=== PATIENT | male | born 1965 | race Caucasian/White ===

== ENCOUNTER 2022-03-07 11:11 | Outpatient (CLI) | payer OTHER, SELFPAY ==
--- NOTE | 2022-03-07 11:33 | XR_ITS ---
WS: [id number] Exam: XR knee LT 3V* [id number] Date/Time of Exam: 03/07/2022 11:54 AM Reason For Exam: ARTHRITIS No fracture or dislocation. Joint compartments are well-maintained. No joint effusion. Venous varicos ities noted along the medial aspect of the knee. XR/XR knee LT 3V* [id number] IMPRESSION: 1. No fracture or other significant finding.
--- NOTE | 2022-03-07 11:33 | XR_ITS ---
WS: [id number] Exam: XR knee RT 3V* [id number] Date/Time of Exam: 03/07/2022 11:54 AM Reason For Exam: ARTHRITIS No fracture or dislocation identified. No joint effusion seen. The joint compartments are preserved. There appears to be a bone spur along the anterior margin of the tibial plateau. XR/XR knee RT 3V* [id number] IMPRESSION: 1. No fracture or joint effusion. 2. Bone spur along the anterior margin of the central tibial plateau.
== END 2022-03-07 11:12 | disposition home or self-care (01) ==
PROVIDERS: PCP Family Medicine; Visit Provider Chiropractor
DX: M13.861 Other specified arthritis, right knee; M13.862 Other specified arthritis, left knee
CPT/HCPCS: 73562

== ENCOUNTER 2022-06-27 14:15 | Outpatient (RCR) | payer OTHER, SELFPAY | END 2022-07-09 23:59 | disposition home or self-care (01) | LOC: SPT 14:15 | PROVIDERS: Visit Provider Family Medicine | DX: M25.569 Pain in unspecified knee (principal) | CPT/HCPCS: 97110; 97161 ==

== ENCOUNTER 2022-07-20 08:36 | Outpatient (RCR) | payer OTHER, SELFPAY | END 2022-08-08 23:59 | disposition home or self-care (01) | LOC: SPT 08:36 | PROVIDERS: Visit Provider Family Medicine | DX: M25.569 Pain in unspecified knee (principal) | CPT/HCPCS: 97110 ==

== ENCOUNTER 2022-08-09 06:00 | Outpatient (RCR) | payer OTHER, SELFPAY | END 2022-09-08 23:59 | disposition home or self-care (01) | LOC: SPT 06:00 | PROVIDERS: Visit Provider Family Medicine | DX: M25.569 Pain in unspecified knee (principal) | CPT/HCPCS: 97110 ==

== ENCOUNTER 2022-09-18 20:00 | Outpatient (CLI) | payer OTHER, SELFPAY | END 2022-09-18 20:01 | disposition home or self-care (01) | LOC: SLEEP 09-19 06:14 | PROVIDERS: Visit Provider Family Medicine | DX: G47.10 Hypersomnia, unspecified (principal) | CPT/HCPCS: 95810 ==

== ENCOUNTER 2023-07-03 08:29 | Outpatient (CLI) | payer OTHER, SELFPAY ==
--- NOTE | 2023-07-03 08:40 | MR_ITS ---
WS: [id number] MRI LUMBAR SPINE NONCONTRAST TECHNIQUE: Sagittal T1, T2 and STIR imaging. Axial T1 and T2 imaging. CLINICAL INFORMATION: LUMBAR RADICULOPATHY COMPARISON: None. FINDINGS: Mild lumbar curve. No acute compression. No high-grade central canal stenosis. L1-L2: Mild annular bulging. Narrowing of the LEFT subarticular recess. Mild facet arthropathy. Mild LEFT greater than RIGHT foraminal narrowing. L2-L3: Mild annular bulging. Impingement RIGHT subarticular recess and traversing RIGHT L3 nerve root . Mild facet arthropathy. Mild RIGHT foraminal narrowing. L3-L4: Mild disc bulging with mild facet arthropathy. Mild bilateral foraminal narrowing with small f oraminal protrusions. L4-L5: Mild disc bulge with osteophytic ridging. Moderate facet arthropathy. Spinal canal is patent. Moderate RIGHT foraminal narrowing impinges the exiting RIGHT L4 nerve root. L5-S1: Mild disc bulging with moderate facet arthropathy. Mild LEFT greater than RIGHT foraminal narr owing. Spinal canal is patent. Visualized pelvic bony structures: Normal. Paravertebral soft tissues: Normal. Small disc protrusions in the cervical spine merchandise flow associate imaging at C3-C4 and C5-C6 with slight indentation of the cervical cord and mild central canal stenosis. MR/MR lumbar spine wo con* [id number] IMPRESSION: 1. Mild lumbar curve. No acute compression. 2. Moderate RIGHT L4-5 foraminal narrowing impinges the exiting RIGHT L4 nerve root. Recommend correlation for RIGHT L4 nerve root symptoms. 3. Small LEFT proximal foraminal protrusion L1-2 with narrowing of the LEFT ness barticular recess and mild LEFT foraminal narrowing. 4. Small RIGHT foraminal protrusion L2-3 impinges the RIGHT subarticular reces s with contact of the exiting RIGHT L2 nerve root. 5. Mild bilateral L3-4 foraminal narrowing with small foraminal protrusions. 6. Moderate facet arthropathy worse at L4-L5 and L5-S1.
== END 2023-07-03 08:30 | disposition home or self-care (01) ==
LOC: RAD 08:29
PROVIDERS: Visit Provider Family Medicine
DX: M16.0 Bilateral primary osteoarthritis of hip (principal)
CPT/HCPCS: 72148; 99203

== ENCOUNTER → 2023-09-01 07:15 | Outpatient (BNVA) | payer OTHER, SELFPAY | PROVIDERS: PCP Family Medicine; Visit Provider Student in an Organized Health Care Education/Training Program | DX: M16.0 Bilateral primary osteoarthritis of hip (principal) | CPT/HCPCS: 73522 ==

== ENCOUNTER → 2023-10-02 09:48 | Outpatient (BNVA) | payer OTHER, SELFPAY | PROVIDERS: PCP Family Medicine; Visit Provider Student in an Organized Health Care Education/Training Program | DX: M16.12 Unilateral primary osteoarthritis, left hip | CPT/HCPCS: 20610; 77002; J3301 ==

== ENCOUNTER → 2024-01-15 08:00 | Outpatient (BNVA) | payer OTHER, SELFPAY | PROVIDERS: PCP Family Medicine; Visit Provider Physician Assistant | DX: M16.0 Bilateral primary osteoarthritis of hip (principal) | CPT/HCPCS: 99214 ==

== ENCOUNTER 2024-02-19 08:49 | Outpatient (CLI) | payer OTHER, SELFPAY ==
--- NOTE | 2024-02-19 09:15 | CT_ITS ---
WS: [id number] CT LEFT HIP, noncontrast HISTORY: M16.12 - Unilateral primary osteoarthritis, left hip TECHNIQUE: Protocol for [facility] total hip replacement has been obtained. This includes axial imaging thr ough the LEFT hip AND LEFT KNEE. DLP: 655.12 mGy COMPARISON: None available. Degenerative disc disease in the lower lumbar spine. Moderate bilateral hip joint arthritis with join t space narrowing, osteophytic ridging and acetabular ridging. No fractures. LEFT knee: Mild patellofemoral joint space narrowing. No fracture. CT/CT hip LT [facility] [id number] IMPRESSION: CT imaging provided for [facility] robotic total LEFT HIP replacement.
[2024-02-19 10:00] LABS: Basophils % 0.4 %; Eosinophils # 0.1 10^3/uL (0.0-0.8); Eosinophils % 1.3 %; Hematocrit 40.2 % (37-53); Lymphocytes # 1.6 10^3/uL (0.8-4.8); Lymphocytes % 34.8 %; Mean Corpuscular HGB Conc 33.1 g/dL (30-55); Mean Corpuscular Volume 87.8 fl (82-101); Mean Platelet Volume 7.9 fL (7.4-10.4); Monocytes # 0.4 10^3/uL (0.2-0.9); Monocytes % 7.8 %; Neutrophils # 2.53 10^3/uL (1.8-7.7); Nucleated Red Blood Cells % 0 %; Platelet Count 280 10^3/cmm (157-399); Red Blood Count 4.58 10^6/uL (3.85-5.65); Red Cell Distribution Width 12.5 % (12.1-15.1)
[2024-02-19 10:09] LABS: Bilirubin Urine Negative (Negative); Blood Urine Negative (Negative); Glucose Urine UA Negative (Normal); Ketones Urine Negative (Negative); Leukocyte Esterase Urine Negative (Negative); Nitrate Urine Negative (Negative); Protein Urine Negative (Negative); Urine Appearance Clear (CLEAR); Urine Color Yellow (Yellow); Urobilinogen Urine 0.2 mg/dL (Negative)
[2024-02-19 10:16] LABS: Add Urine Microscopic? YES; Bacteria Urine None Seen /hpf; Hyaline Casts Urine 0-4 /lpf; RBC Urine 0-2 /hpf (0-2); Squamous Epithelial Cell Urine 0-5 /hpf (0-5); WBC Urine 0-5 /hpf (0-5)
[2024-02-19 10:20] LABS: Alanine Aminotransferase 14 U/L (0-41); Albumin Level 4.3 g/dL (3.5-5.2); Alkaline Phosphatase 70 U/L (40-130); Anion Gap 15.5 (5-19); Aspartate Amino Transferase 18 U/L (0-40); Blood Urea Nitrogen 13 mg/dL (8-23); Calcium 9.2 mg/dL (8.5-10.5); Carbon Dioxide 25 mmol/L (22-29); Chloride 104 mmol/L (98-107); Globulin 2.4 g/dL (1.3-4.6); Glomerular Filtration Rate 61.8 mL/min (90-130); Glucose 112 mg/dL (65-115); Osmolality Calculated 291 mOsm/kg (285-295); Potassium 4.5 mmol/L (3.5-5.1); Sodium 140 mmol/L (136-145); Total Bilirubin 0.4 mg/dL (0.15-1.2); Total Protein 6.7 g/dL (6.6-8.7)
== END 2024-02-19 08:50 | disposition home or self-care (01) ==
PROVIDERS: PCP Family Medicine; Visit Provider Student in an Organized Health Care Education/Training Program
DX: Z01.818 Encounter for other preprocedural examination (principal); M16.12 Unilateral primary osteoarthritis, left hip
CPT/HCPCS: 36415; 73700; 80053; 81001; 85025

== ENCOUNTER 2024-03-07 14:31 | Observation (INO) | payer OTHER, SELFPAY ==
[2024-03-07] VITALS (24 sets, daily range): BP systolic 112–165; BP diastolic 68–98; PULSE 70–107; RESP 14–18; TEMP 36.2–37.1; O2SAT 94–98; BMI 27.1
[2024-03-07] MEDS: sodium chloride 0.9% 1,000 ML 30 ML IV (06:22)
[2024-03-07] MEDS: acetaminophen 1,000 MG/100 ML PIGGYBACK 400 MG IV ×2 (06:22→16:45)
[2024-03-07] MEDS: ketorolac 30 mg/mL INJ IVP (06:23)
[2024-03-07 06:27] LABS: Basophils % 0.3 %; Eosinophils # 0.1 10^3/uL (0.0-0.8); Eosinophils % 1.3 %; Hematocrit 40.8 % (37-53); Lymphocytes # 2.9 10^3/uL (0.8-4.8); Lymphocytes % 45.9 %; Mean Corpuscular HGB Conc 33.6 g/dL (30-55); Mean Corpuscular Volume 86.4 fl (82-101); Monocytes # 0.5 10^3/uL (0.2-0.9); Monocytes % 7.1 %; Neutrophils # 2.85 10^3/uL (1.8-7.7); Neutrophils % 45.1 %; Nucleated Red Blood Cells % 0 %; Platelet Count 312 10^3/cmm (157-399); Red Blood Count 4.72 10^6/uL (3.85-5.65); Red Cell Distribution Width 13.1 % (12.1-15.1); White Blood Count 6.32 10^3/uL (3.29-11.43)
[2024-03-07 06:46] LABS: Blood Urea Nitrogen 17 mg/dL (8-23); Calcium 9.2 mg/dL (8.5-10.5); Carbon Dioxide 22 mmol/L (22-29); Chloride 102 mmol/L (98-107); Glomerular Filtration Rate 61.8 mL/min (90-130); Glucose 106 mg/dL (65-115); Osmolality Calculated 288 mOsm/kg (285-295); Sodium 138 mmol/L (136-145)
[2024-03-07 06:52] LABS: Anion Gap 18.1 (5-19); Potassium 4.1 mmol/L (3.5-5.1)
--- NOTE | 2024-03-07 06:58 | P.HP_ITS ---
Same Day Surgery H&P Indication for Procedure/HPI DATE OF PROCEDURE: March 07, 2024 CHIEF COMPLAINT/INDICATIONFOR SURGICAL PROCEDURE: Left hip arthritis PREOP DIAGNOSIS: Left hip arthritis PLANNED PROCEDURE: Operation Date: 03/07/24 07:00 Proposed Procedures p Ángel Robot Anterior Hip Arthroplasty(Left) - Ion Whitlock DO Medications/Allergies* Home Medications Medication Instructions Recorded Confirmed Type omeprazole 20 mg capsule,delayed 20 mg PO BID 07/03/23 03/03/24 History release rosuvastatin 10 mg tablet 10 mg PO DAILY 07/03/23 03/03/24 History Allergies/Adverse Reactions Allergy/AdvReac Type Severity Reaction Status Date / Time No Known Allergies Allergy Verified 03/07/24 06:06 Current Medications: Generic Name Dose Route Start Last Admin Trade Name Freq PRN Reason Stop Dose Admin Sodium Chloride 1,000 mls @ 30 mls/hr 03/07/24 06:15 03/07/24 06:22 Sodium Chloride 0.9% IV 03/08/24 06:14 30 mls/hr .Q24H ANGELIA Administration Pertinent History/Comorbid Conditions* Social History Smoking and tobacco/nicotine status: never used tobacco/nicotine Pertinent Exam Findings alert, oriented x 3, operative site marked and procedure specific exam findings Please refer to detailed orthopedic examination on 01/15/2024 listed below: Right hip-palpable groin tenderness, limited range of motion. Pain with range of motion. Patient can perform straight leg raise with dorsiflexion and plantar flexion of foot. Left hip-palpable groin tenderness, limited range of motion with abrupt endpoint with external rotation. Pain with range of motion. Patient can perform straight leg raise with dorsiflexion and plantarflexion of foot. Recommendations Surgery/Procedure today Other Plans: Plan to proceed to the OR today for left total hip arthroplasty with Ángel robotic assisted plan to be through an anterior approach. As he has good body habitus and no significant pannus. We talked about his treatment options once again in detail he understands the ins and outs procedure the risk benefits Cage alternatives surgery and through shared decision make elects proceed with surgical invention. All questions answered at this time. He is cleared the preoperative clearance process no change in overall health since the previous visit. All questions answered. Will proceed to the OR today. Coding Level of Care Code Acute Code for [facility] Thiago
[2024-03-07] MEDS: ceFAZolin 2,000 MG in sodium chloride 0.9% (plus) 50 ML 100 MG IV ×3 (07:14→22:28)
--- NOTE | 2024-03-07 07:14 | P.ANESASSM_ITS ---
Pre-Anesthetic Assessment Height/Weight: Height 1.78 m Weight 85.729 kg Temp Pulse Resp BP Pulse Ox O2 Del Method 98.7 F 91 18 149/98 98 Room Air 03/07/24 06:11 03/07/24 06:11 03/07/24 06:11 03/07/24 06:11 03/07/24 06:11 03/07/24 06:12 Preop Diagnosis: Left hip arthritis Operation Date: 03/07/24 07:00 Proposed Procedures p Ángel Robot Anterior Hip Arthroplasty(Left) - Ion Whitlock DO Familial anesthetic complications: None Was Beta Jose taken within 24 hours: N/A Was Clonidine taken within 24 hours: N/A Last intake: Intake Last Liquid Date 03/06/24 Last Liquid Time 23:00 Last Solid Date 03/06/24 Last Solid Time 19:00 Social No alcohol and No tobacco Exam alert, oriented x 3, clear to auscultation bilaterally and regular rate & rhythm Airway Mallampati: Class IV Dentition: other (bridges) Comments: Comments: full hubbard Metabolic Hyperlipidemia Anesthetic Plan ASA status: 2 Anesthesia: General Risk of > 500 ml blood loss (7ml/kg in children): Yes, adequate IV access and fluids planned Other Pertinent Information Recent acute shingles outbreak Medications/Allergies Home Medications Medication Instructions Recorded Confirmed Last Taken Type omeprazole 20 mg capsule,delayed 20 mg PO BID 07/03/23 03/03/24 03/06/24 History release rosuvastatin 10 mg tablet 10 mg PO DAILY 07/03/23 03/03/24 03/05/24 History Allergies Allergy/AdvReac Type Severity Reaction Status Date / Time No Known Allergies Allergy Verified 03/07/24 06:06 Current Medications Generic Name Dose Route Start Last Admin Trade Name Freq PRN Reason Stop Dose Admin Sodium Chloride 1,000 mls @ 30 mls/hr 03/07/24 06:15 03/07/24 06:22 Sodium Chloride 0.9% IV 03/08/24 06:14 30 mls/hr .Q24H ANGELIA Administration PFSH Anesthesia Social History Smoking and tobacco/nicotine status: never used tobacco/nicotine Data Anesthesia 03/07/24 06:05 03/07/24 06:05 Short CBC 03/07/24 Range/Units 06:05 WBC 6.32 (3.29-11.43) 10^3/uL Hgb 13.70 (11.27-16.99) g/dL Hct 40.8 (37-53) % MCV 86.4 (82-101) fl Plt Count 312 (157-399) 10^3/cmm Neut % (Auto) 45.1 % Neut # (Auto) 2.85 (1.8-7.7) 10^3/uL BMP 03/07/24 06:05 Sodium 138 Potassium 4.1 Chloride 102 Carbon Dioxide 22 BUN 17 Creatinine 1.2 Glucose 106 Calcium 9.2 Cardiac Studies: 2 No Data to Display
[2024-03-07] MEDS: tranexamic acid 1,000 mg/10mL SDV 1000 MG IV (07:15)
[2024-03-07] MEDS: lidocaine-epi 1% 20 mL INJ INJECTION ×2 (08:17→10:27)
[2024-03-07] MEDS: VANCOMYCIN ADD-Vantage 1,000 MG VIAL 1000 MG XX (08:18)
--- NOTE | 2024-03-07 10:23 | XR_ITS ---
WS: [id number] Exam: XR hip LT 1V wo/w pel [id number] Date/Time of Exam: 03/07/2024 10:23 AM Reason For Exam: POST OP ANTERIOR LEFT HIP ARTHROPLASTY Comparison 09/01/2023. Single AP C-arm image of the LEFT hip shows a total joint replacement in satisfactory position. Posto perative changes in the adjacent soft tissues.
--- NOTE | 2024-03-07 10:40 | W.PM.BPON ---
Date of Procedure: [March 07, 2024] Surgeon: [Dr. Kamlesh DO] Medical Grade Shoemaker(s): [Woodrow jimenez PA-C] Procedure(s) performed: [Left total hip arthroplasty with Ángel robotic assist (anterior approach)] Findings of the procedure(s): [Left hip degenerative joint disease. Procedure went well and as planned.] Estimated blood loss: [250 mL] Specimen(s) removed: [Femoral head] Post-operative diagnosis: [Left hip degenerative joint disease]
--- NOTE | 2024-03-07 10:43 | PM.PACU ---
PACU note Narrative: Patient is a 58-year-old male who just underwent a left hip total arthroplasty. Pt transferred to PACU in stable condition. Dressing is dry. pt is awake and alert. pt can wiggle toes and plantarflex and dorsiflex foot. pt able to perform straight leg raise, Femoral nerve intact. Distal pulses are palpable toes are warm and well-perfused. Cap refill is normal and under 2 seconds. Sensation to foot is intact. Pain is controlled. Exam: awake Disposition: admitted
--- NOTE | 2024-03-07 10:50 | XR_ITS ---
WS: [id number] Exam: XR hip LT 2-3V wo/w pel* [id number] Date/Time of Exam: 03/07/2024 10:50 AM Reason For Exam: post op TIFFANIE left LEFT total hip arthroplasty in place in satisfactory position. Postoperative changes in the adjacent soft tissues. XR/XR hip LT 2-3V wo/w pel* [id number] IMPRESSION: 1. LEFT total hip arthroplasty in excellent position.
--- NOTE | 2024-03-07 11:07 | P.OP_ITS ---
Operative Report Date of procedure: March 07, 2024 Surgeon: Ion Whitlock DO Reinforcing Steel Machine Operator: Woodrow Whitlock PA-C: PA was necessary for assistance in this case with leg and hip positioning retraction and protection of neurovascular structures as well as assistance in implantation wound closure and dressing application. Procedure: Preoperative diagnosis Left hip degenerative joint disease post-op diagnosis: Same Procedure done: Left total?hip?arthroplasty?Ángel robotic assisted?anterior?approach Implants: Steve Trident acetabular shell size 54 mm Davenport insignia high offset size 5? femur stem Trident 0 degree polyethylene 36 degree inner diameter 36 mm femoral head ceramic +2.5 mm Surgeon: Ion Whitlock DO Anesthesia: General Estimated blood loss: 250 mL IV fluids: 1000 mL Complications: None Findings: See operative report narrative Condition: stable Disposition: floor Brief History: Patient is a 58-year-old male presented to my outpatient office setting findings consistent with ehvi-ij-mzbo arthritis advanced degenerative joint disease of the left?hip.? We talked about treatment options as far as nonoperative and operative intervention. Pt has failed conservative treatment.? we talked about treatment options at this point time pt understands the risk benefits complication alternatives surgical nonsurgical treatment options.? Patient und erstands the risk of surgery and agrees to proceed.? Patient has underwent a preoperative evaluation. Pt cleared for surical intervention. Pt understood and was agreeable to proceed with a left total?hip?arthroplasty consent was reviewed and signed with patient.?? All questions answered.? Patient will be admitted postoperatively. Procedure: Patient was seen evaluated in the preoperative holding area.? Consent was reviewed and signed with patient.? Correct operative extremity was then marked. ? All questions were answered at this time.? Once cleared by anesthesia used to brought back to the operative suite he then underwent anesthesia per the anesthesia department of a spinal anesthetic. The patient was administered tranexamic acid and preop antibiotics, and placed in the supine position. All bony prominences were properly padded, securely fixed to the table, and administered?general?anesthetic. The patient was subsequently transferred from the hospital bed to the [place] table. Bilateral lower extremities were placed in the traction boots. The pelvis was well approximated against the perineal post.? Final timeout performed.? Patient received appropriate preoperative antibiotics. Both?hips were then prepped and draped in a normal orthopedic fashion.? Started with a small incision 2 fingerbreadths above the ASIS on the right iliac wing to place? pelvic arrays.? Small incision was made directly down to bone.? 3 pelvic pins were placed with excellent fixation.? The robotic array was secured to the nonoperative iliac wing using sterile technique. The extremity was then definitively draped in standard, sterile fashion.? The array was found to be visible by the robot. ?A standard??anterior?supine approach was performed to the?operative left?hip?joint. The skin was incised down to the tensor fascia shoaib muscle and fascia. Fascia was split longitudinally in line with its fibers. The tensor fascia shoaib muscle was retracted laterally. The appropriate retractors were placed superiorly. Lateral circumflex vessels were identified and appropriately ligated. The?hip?capsule was then identified.? Appropriate retractors were placed superiorly and inferiorly along the capsule directly onto bone.? That was split longitudinally up to the acetabular rim in line with the femoral neck. The femoral capsule was found to be significantly hypertrophic, thickened, and significantly fibrotic. The capsule was then elevated both superiorly and inferiorly down to the lesser trochanter as well as up towards the greater trochanter.? Tag stitches were applied with 0 Vicryl into the capsule.? Femoral check point was?then inserted and confirmed on the lateral trochanter proximal femur.? .? A distal marker?of a sterile EKG lead was placed into the distal femur for measurement of leg lengths.? Preoperative leg lengths were registered and confirmed at this point. Next the appropriate-sized neck cut was then performed after being measured with robotic assistance. Femoral head was removed atraumatically this was found to have significant degenerative changes and deformity with significant osteophyte formation.? Femoral head was found to be severely degenerated and flattening with, eburnated bone. Acetabulum was also inspected and was found to have peripheral osteophytes as well as no evidence of cartilage consistent with rkwf-nk-xebb arthritis.? Appropriate retractors were then placed in the?anterior?and posterior wall.? The remaining labrum was then excised from the periphery of the acetabular rim. Pulvinar was excised.? At this point registration for the Ángel was performed on the acetabular side and confirmed. Once confirmed, any osteophytes able to be were removed. We planned 40 degrees of lateral opening and 20 degrees of anteversion. At this point, we reamed and medialized to the inner wall of the acetabulum with a size?54?reamer for line to line fit.?The acetabulum was found to have good bleeding bone throughout.?? Reamer removed excellent bleeding bone circumferentially with sufficient?anterior?and posterior wall. ?The definitive acetabular cup 54 mm was inserted and impacted under?Ángel guidance with the appropriate amount of anteversion and lateral opening. Patient had excellent bone quality and bleeding bone subsequently to increase bony ingrowth on the superior aspect of the socket this was subsequently impacted in this position and had excellent fixation was confirmed to being down with the Ángel robotic assisted patient did have a deeper cotyloid fossa that was not completely reamed flush with as pt had a thinner medial wall from the preop CT scan. Given the excellent fixation no need for acetabular screws. A this had excellent fixation final x-rays were taken of the acetabular work and showed a seated and well fixed acetabular cup. ?Next a 36-mm X3 neutral liner was impacted into the?acetabular shell and secured.?Hip?was then irrigated with copious amounts of irrigation. At this point, the remaining femoral releases were then performed allowing the adequate mobilization of the?right?femur.? Traction was confirmed to being off to the right lower extremity and the femur was then externally rotated, extended, and adducted giving adequate exposure of the proximal femur in the surgical wound. Box cut was then used to enter the intramedullary canal of the?femur. Canal finder was placed down the canal of the?operative femur. Appropriate-sized broaches from a size 0 up to a size 5 were impacted down the operative femoral canal with the appropriate amount of anteversion.? A multiple trials were at tempted and it was found that?+2.5mm neck was found to be most appropriate for a soft tissue tensioning offset, stability and the leg lengths that was confirmed with Ángel. ?Stability was then assessed and excellent stability with patient external rotation of greater than 90 degrees and traction with no evidence of?hip?instability.? Appropriate tension noted of the soft tissues. At this point, the?hip?was relocated.?Ángel guidance was again used to confirm appropriate leg lengths.? I utilized C arm to evaluate for leg lengths as well I did slightly at the lengthen comparative to the contralateral extremity but this was the appropriate size for patient's stability and excellent soft tissue tensioning as well as this was mapped with her preoperative planning given she had been significantly shortened given pt arthritis.? Operative?hip?was then re- dislocated using a bone hook. All trials were then removed from the?operative femur. Adequate exposure was then once again obtained. The trials were removed. The definitive Davenport insignia high offset stem size 5 was impacted down the?femoral canal with the appropriate amount of anteversion. The appropriate sized head 36 mm ceramic +2.5 mm was impacted onto the trunnion, and the?operative?hip?was then relocated with traction and internal rotation. Final measurements were obtained on Ángel confirming leg lengths and offset.? Once again?hip?stability was assessed and found to have excellent stability and appropriate soft tissue tensioning.??Hip?was irrigated with copious amounts of irrigation.? Vancomycin powder was placed within the wound bed for added infection prophylaxis.? The superior and inferior leaflets of the capsule were then closed with Ethibond suture.? Vicryl tag stitches were removed.? The superficial layer of the tensor fascia shoaib fascia was closed using 0 stratafix suture in a running fashion.? Subcutaneous tissues were closed with running 2 -0 and 3-0 Stratafix, .?Surgical Prineo glue and steri strips were?applied and covered with a tahira incisional VAC dressing dressing to the operative side.?The incision on the non-operative side for the robotic array was irrigated and closed with layered fashion of 0 Vicryl, 2-0 Vicryl and running Monocryl suture and surgical glue and covered with Silverlon. ?The patient was subsequently awoken per Anesthesia and transferred to PACU in satisfactory condition. ?Leg le ngths and rotational profile were found to be appropriate. ? DISPOSITION: The patient will be admitted to the hospital for initiation of DVT prophylaxis, physical therapy, pain control. The patient is to weight bear as tolerated.?Anterior?hip?precautions, postoperative antibiotics,?postoperative TXA and Eliquis?for DVT prophylaxis.? Patient will receive appropriate discharge instructions as well as pain medication postoperatively and will follow up in my office in 2 weeks.? Patient with work with PT/OT.? Internal medicine will be consulted for medical management
[2024-03-07] MEDS: oxyCODONE 5 mg IR Tab/Cap PO ×2 (13:56→22:37)
[2024-03-07] MEDS: chlorhexidine gluconate 0.12% Btl 473 mL 30 ML MUCOUS MEM ×3 (15:07→21:47)
--- NOTE | 2024-03-07 15:40 | ANE.PACU2 ---
Inpatient post-anesthesia follow up: Airway intact: Yes Vital signs: Temperature 98.3 F Pulse Rate 80 Respiratory Rate 17 Blood Pressure 119/82 Pulse Oximetry 96 Oxygen Delivery Me thod Room Air Oxygen Flow Rate Fraction of Inspir ed Oxygen Hydration adequate: Yes Nausea and vomiting: No Pain level: 1 Mental status: Baseline
--- NOTE | 2024-03-07 15:48 | P.CONIM_ITS ---
Providers/Reason For Consult 2 Consulting Physician/Specialty*: Hospitalist Reason for Consult*: Medical management Attending Physician: Ion Whitlock DO Primary Care Provider: Rochelle Mojica MD History of Present Illness History of Present Illness Pleasant 58-year-old gentleman with history of hip osteoarthritis, HLD, GERD, inguinal hernia, has had a sleep study previously which showed no sleep apnea, underwent uneventful left hip TIFFANIE, EBL 250 mL, doing well postprocedure, he is awake and alert, in good spirits, denies any issues or discomfort. Review of Systems 2 Const: Denies: fever(s), chills, body aches or malaise ENMT: Denies: throat pain Card: Denies: chest pain, edema, pre-syncope or dyspnea on exertion Resp: Denies: dyspnea, productive cough, change in phlegm color or hemoptysis GI: Denies: abdominal pain, nausea, vomiting, diarrhea, constipation, hematochezia or melena : Denies: flank pain, difficulty urinating, urinary frequency or hematuria Musc: Denies: back pain, joint swelling or joint redness Skin/Breast: Denies: rash or new lesions Neuro: Denies: headache(s) or dizziness Medications/Allergies Home Medications Medication Instructions Recorded Confirmed Last Taken Type omeprazole 20 mg capsule,delayed 20 mg PO BID 07/03/23 03/03/24 03/06/24 History release rosuvastatin 10 mg tablet 10 mg PO DAILY 07/03/23 03/03/24 03/05/24 History Allergies Allergy/AdvReac Type Severity Reaction Status Date / Time No Known Allergies Allergy Verified 03/07/24 06:06 Current Medications Generic Name Dose Route Start Last Admin Trade Name Freq PRN Reason Stop Dose Admin Chlorhexidine Gluconate 30 ml 03/07/24 14:35 03/07/24 15:07 Chlorhexidine Gluconate 0.12% Btl 473 Ml MUCOUS MEM 30 ml QID ANGELIA Administration Cefazolin Sodium 2,000 mg/ 50 mls @ 100 mls/hr 03/07/24 15:00 03/07/24 15:10 Sodium Chloride IV 03/08/24 07:29 100 mls/hr Q8H ANGELIA Administration Protocol Oxycodone HCl 5 mg 03/07/24 13:48 03/07/24 13:56 Oxycodone 5 Mg Ir Tab/Cap PO 5 mg Q4H PRN Administration MODERATE PAIN PFSH Acute 2 PFSH: Medical History Hernia HLD (hyperlipidemia) GERD (gastroesophageal reflux disease) Social History Smoking and tobacco/nicotine status: never used tobacco/nicotine Vitals/I&O/Wt Last Vital Signs Temp 98.3 F 03/07/24 14:35 Pulse 80 03/07/24 14:35 Resp 17 03/07/24 14:35 BP 119/82 03/07/24 14:35 Pulse Ox 96 03/07/24 14:35 O2 Del Method Room Air 03/07/24 14:35 03/07/24 03/07/24 03/07/24 06:59 14:59 22:59 Intake Total 100 / 100 150 / 150 Output Total 500 / 500 Balance 100 / 100 -350 / -350 Weight last 48 hrs Weight 85.729 kg Physical Exam 2 Narrative: He is alert and lucid, pleasant, conversant, joking around in good spirits. Accompanied by his . Const: COMMON NORMALS: patient oriented x3 and alert GENERAL APPEARANCE: c ooperative ORIENTATION/CONSCIOUSNESS: Yes awake HENMT: COMMON NORMALS: oropharynx normal Neck/C-Spine: COMMON NORMALS: no JVD Resp: COMMON NORMALS: normal respiratory effort and clear to auscultation bilaterally AUSCULTATION: clear to auscultation bilaterally Cardio: COMMON NORMALS: no JVD, regular rhythm, S1 normal heart sound present, S2 normal heart sound present and No murmurs present (Cardio) RHYTHM: regular rhythm HEART SOUNDS: S1 normal heart sound present and S2 normal heart sound present GI: COMMON NORMALS: Normal to inspection, nondistended, normoactive bowel sounds present, Soft to palpation and non-tender PALPATION: Yes Soft to palpation Extremity: COMMON NORMALS: no joint enlargement and no pedal edema N ARRATIVE EXTREMITY EXAM: L hip TIFFANIE, LLE warm, perfused, without edema or cyanosis. Neuro: COMMON NORMALS: patient oriented x3 and moves all extremities S ENSORIUM/ORIENTATION: Yes alert Skin: COMMON NORMALS: no rashes or lesions noted GENERAL SKIN EXAM: no rashes or lesions noted Urinary Catheter Management: Chatman: Cath Placed During This Visit: yes Urinary Catheter Date of Insertion: 03/07/24 Urinary Catheter Time of Insertion: 07:30 Data 03/07/24 06:05 03/07/24 06:05 A&P Assessment and plan (1) Status post total hip replacement, left: Status post total left hip replacement, uneventful procedure, EBL 250 mL. As per discussion with orthopedic surgery, he is doing well, pending reassessment tomorrow by orthopedic surgery who have planned with him to return home with initiation of anticoagulation tomorrow for VTE prophylaxis. Reviewed vitals, CBC, BMP, surgery note. Discussed with surgeon. Pending PT assessment. Incentive spirometer is requested. Chatman catheter for now pending removal. With history of GERD would avoid NSAIDs. Acetaminophen as needed for mild pain added, oxycodone as needed for moderate pain. Hydromorphone as needed for severe breakthrough pain. Stop tramadol. He is awake and alert, hungry, was to eat. Discontinue IV fluid. Resume normal diet. He otherwise appears to be doing very well. Will sign off, but do not hesitate to call in case of any questions or deterioration. Plan GERD, resume PPI. Avoid NSAIDs. Discussed with him and his . Stop tramadol. HLD: Resume rosuvastatin. Inguinal hernia: Has not been bothering him at current time. Follow-up with PCP. Does not have sleep apnea. Follow-up with primary care provider after discharge. Consult Attestations 2 Medical Necessity Statement: Continue postoperative care and post discharge planning after left TIFFANIE. and High MDM includes amount and/or complexity of data reviewed/ordered [ previous or external records, resulted lab(s)/test(s), ordered lab(s)/test(s) and other healthcare professional discussion] and described risk of complication, morbidity or mortality of management as documented Diagnoses Status post total hip replacement, left Z96.642
[2024-03-07] MEDS: sennosides-docusate Tablet 2 TAB PO (16:53)
[2024-03-07] MEDS: pantoprazole DR 40 mg Tablet PO (16:54)
[2024-03-07] MEDS: calcium carb-vit d 600mg/400unit 1 Tablet 1 EACH PO (16:55)
[2024-03-07] MEDS: iron polysaccharide complex 150 mg Capsule PO (16:55)
[2024-03-07] MEDS: tranexamic acid 1,000 MG/100 ML PREMIX 600 MG IV (16:55)
[2024-03-07] MEDS: mupirocin oint 22 gm 1 APPLIC NASAL (17:21)
[2024-03-08] MEDS: acetaminophen 1,000 MG/100 ML PIGGYBACK 400 MG IV ×2 (00:08→09:39)
[2024-03-08 04:10] VITALS: BP 115/72; PULSE 83; RESP 17; TEMP 36.7; O2SAT 96
[2024-03-08 04:21] VITALS: RESP 18
[2024-03-08] MEDS: oxyCODONE 5 mg IR Tab/Cap PO ×3 (04:21→13:48)
[2024-03-08] MEDS: ceFAZolin 2,000 MG in sodium chloride 0.9% (plus) 50 ML 100 MG IV (06:29)
[2024-03-08 07:12] LABS: Basophils % 0.1 %; Eosinophils % 0.3 %; Hematocrit 35.9 % (37-53); Lymphocytes # 2.8 10^3/uL (0.8-4.8); Lymphocytes % 28.5 %; Mean Corpuscular HGB Conc 32.9 g/dL (30-55); Mean Corpuscular Hemoglobin 29.1 pg (27-33); Mean Corpuscular Volume 88.6 fl (82-101); Mean Platelet Volume 8.1 fL (7.4-10.4); Monocytes # 0.9 10^3/uL (0.2-0.9); Monocytes % 9.4 %; Neutrophils % 61.4 %; Nucleated Red Blood Cells % 0 %; Platelet Count 281 10^3/cmm (157-399); Red Blood Count 4.05 10^6/uL (3.85-5.65); Red Cell Distribution Width 13.2 % (12.1-15.1); White Blood Count 9.93 10^3/uL (3.29-11.43)
[2024-03-08 07:20] VITALS: BP 116/66; PULSE 80; RESP 18; TEMP 37; O2SAT 96
[2024-03-08 07:29] LABS: Anion Gap 16.1 (5-19); Blood Urea Nitrogen 14 mg/dL (8-23); Calcium 8.9 mg/dL (8.5-10.5); Carbon Dioxide 22 mmol/L (22-29); Chloride 101 mmol/L (98-107); Glomerular Filtration Rate 56.3 mL/min (90-130); Glucose 120 mg/dL (65-115); Osmolality Calculated 282 mOsm/kg (285-295); Potassium 4.1 mmol/L (3.5-5.1); Sodium 135 mmol/L (136-145)
[2024-03-08 08:54] VITALS: RESP 18
[2024-03-08] MEDS: apixaban 5 mg Tablet 2.5 MG PO (08:55)
[2024-03-08] MEDS: atorvastatin 40 mg Tablet PO (08:55)
[2024-03-08] MEDS: pantoprazole DR 40 mg Tablet PO (08:55)
[2024-03-08] MEDS: calcium carb-vit d 600mg/400unit 1 Tablet 1 EACH PO (08:55)
[2024-03-08] MEDS: sennosides-docusate Tablet 2 TAB PO (08:55)
[2024-03-08] MEDS: iron polysaccharide complex 150 mg Capsule PO (08:55)
[2024-03-08] MEDS: multivitamin therapeutic Tablet 1 TAB PO (08:55)
[2024-03-08] MEDS: mupirocin oint 22 gm 1 APPLIC NASAL (09:49)
[2024-03-08] MEDS: chlorhexidine gluconate 0.12% Btl 473 mL 30 ML MUCOUS MEM ×2 (09:51→12:02)
[2024-03-08 11:40] VITALS: BP 121/75; PULSE 89; RESP 18; TEMP 36.8; O2SAT 96
--- NOTE | 2024-03-08 12:54 | PM.DCS ---
Discharge Providers Date of Admission: 03/07/24 14:31 Date of Discharge: March 08, 2024 Attending Provider at Admission: Ion Whitlock DO Attending Provider at Discharge: Ion Whitlock DO Consults: Dr. Jolley?hospitalist Primary Care Provider: Rochelle Mojica MD Diagnoses at Discharge Discharge Diagnosis (1) Status post total hip replacement, left: Status: Acute Reason for Visit Reason for Visit: M16.0 Brief History: Status post left total hip arthroplasty anterior approach Ángel robotic assisted Hospital Course Hospital Course Patient was brought to the hospital through the preoperative holding area with plan for left total hip arthroplasty for left hip dengerative joint disease. Once cleared by anesthesia for surgery subsequently was taken back to the operative suite underwent anesthesia per the anesthesia department and then underwent left total hip arthroplasty with Ángel robotic assistance anterior approach without any complications. Patient was then subsequently taken back to PACU in stable condition recovering well. Once recovered, patient was then subsequently admitted to the floor postoperatively. Internal medicine was consulted for medical management assistance. Patient weightbearing as tolerated to the left lower extremity, anterior hip precautions. PT/OT. Pain control. DVT prophylaxis. Postoperative antibiotics and TXA. dressing was change as needed. Internal medicine was on board and appreciate their medical management and assistance. Patient progressed well through therapy and plan for discharge home. Pt was determined on postoperative day 1 the patient was stable for discharge from orthopedic as well as internal medicine standpoint. Patient's labs were monitored daily. Patient will receive appropriate pain medication as well as DVT prophylaxis postoperatively. Appropriate discharge instructions as well. Patient was then discharged in stable condition. Patient will discharge home. Pt will follow-up with Orthopedics in the office in 2 weeks. Patient understands and agrees with current plan. All questions answered. Understands there is any issues or concerns and contact the office. Physical Exam Narrative: Left hip examination: Left hip dressing on in place, clean dry and intact. Right hip Silverlon dressing clean dry and intact, no evidence of saturation. Patient has normal postoperative swelling and tenderness to palpation to the left hip. Compartments are soft compressible,'s calf soft and nontender. Sensations intact to light touch distally. Distal pulses are palpable. Patient is able to wiggle toes as well as plantarflex and dorsiflex ankle. Urinary Catheter Management: Chatman: Cath Placed During This Visit: yes, but has since been removed by the nurse Reason for Continuing Indwelling Catheter: Decision to DC Catheter Urinary Catheter Date of Insertion: 03/07/24 Urinary Catheter Time of Insertion: 07:30 Date Urinary Catheter Removed: 03/07/24 Time Urinary Catheter Discontinued: 21:59 Discharge Data Studies Completed and Pending Completed Studies During Hospitalization Category Date Time Status XR hip LT 1V wo/w pel [id number] Routine Exams 03/07/24 10:23 Completed XR hip LT 2-3V wo/w pel* [id number] Routine Exams 03/07/24 10:50 Completed Pending at discharge Category Date Time Status C-arm Fluoroscopy 07628 Routine Exams 03/07/24 06:02 Taken Basic Metabolic Panel AM LABS Lab 03/09/24 04:00 Ordered Basic Metabolic Panel AM LABS Lab 03/10/24 04:00 Ordered Complete Blood Count w/Auto AM LABS Lab 03/09/24 04:00 Ordered Complete Blood Count w/Auto AM LABS Lab 03/10/24 04:00 Ordered Radiology Impressions Hip/Pelvis X-Ray 03/07/24 10:50 IMPRESSION: 1. LEFT total hip arthroplasty in excellent position. Laboratory Results WBC 9.93 10^3/uL (3.29-11.43) 03/08/24 06:22 RBC 4.05 10^6/uL (3.85-5.65) 03/08/24 06:22 Hgb 11.80 g/dL (11.27-16.99) 03/08/24 06:22 Hct 35.9 % (37-53) L 03/08/24 06:22 MCV 88.6 fl (82-101) 03/08/24 06:22 MCH 29.1 pg (27-33) 03/08/24 06:22 MCHC 32.9 g/dL (30-55) 03/08/24 06:22 RDW 13.2 % (12.1-15.1) 03/08/24 06:22 Plt Count 281 10^3/cmm (157-399) 03/08/24 06:22 MPV 8.1 fL (7.4-10.4) 03/08/24 06:22 Neut % (Auto) 61.4 % 03/08/24 06:22 Lymph % (Auto) 28.5 % 03/08/24 06:22 [place] % (Auto) 9.4 % 03/08/24 06:22 Eos % (Auto) 0.3 % 03/08/24 06:22 Baso % (Auto) 0.1 % 03/08/24 06:22 Neut # (Auto) 6.10 10^3/uL (1.8-7.7) 03/08/24 06:22 Lymph # (Auto) 2.8 10^3/uL (0.8-4.8) 03/08/24 06:22 [place] # (Auto) 0.9 10^3/uL (0.2-0.9) 03/08/24 06:22 Eos # (Auto) 0.0 10^3/uL (0.0-0.8) 03/08/24 06:22 Baso # (Auto) 0.0 10^3/uL (0.0-0.1) 03/08/24 06:22 Nucleated RBC % (auto) 0 % 03/08/24 06:22 Nucleated RBCs # 0.0 /100WBC 03/08/24 06:22 Sodium 135 mmol/L (136-145) L 03/08/24 06:22 Potassium 4.1 mmol/L (3.5-5.1) 03/08/24 06:22 Chloride 101 mmol/L (98-107) 03/08/24 06:22 Carbon Dioxide 22 mmol/L (22-29) 03/08/24 06:22 Anion Gap 16.1 (5-19) 03/08/24 06:22 BUN 14 mg/dL (8-23) 03/08/24 06:22 Creatinine 1.3 mg/dL (0.7-1.2) H 03/08/24 06:22 GFR Calculation 56.3 mL/min (90-130) L 03/08/24 06:22 Glucose 120 mg/dL (65-115) H 03/08/24 06:22 Calculated Osmolality 282 mOsm/kg (285-295) L 03/08/24 06:22 Calcium 8.9 mg/dL (8.5-10.5) 03/08/24 06:22 Blood Type A Positive 03/07/24 06:05 Rho(D) Type Rh positive 03/07/24 06:05 Antibody Screen Negative 03/07/24 06:05 Vitals Last Vital Signs Temp 98.3 F 03/08/24 11:40 Pulse 89 03/08/24 11:40 Resp 18 03/08/24 11:40 BP 121/75 03/08/24 11:40 Pulse Ox 96 03/08/24 11:40 O2 Del Method Room Air 03/08/24 11:40 Discharge Plan Discharge Patient Disposition: Home Health Service Condition: Stable Prescriptions: New ondansetron 4 mg tablet,disintegrating 4 mg PO Q8H PRN (Reason: nausea and vomiting) 3 Days Qty: 9 0RF Eliquis 2.5 mg tablet 2.5 mg PO BID 35 Days Qty: 70 0RF methocarbamol 500 mg tablet 500 mg PO TID PRN (Reason: muscle spasms/pain) 14 Days Qty: 42 0RF oxycodone 5 mg tablet 5 mg PO Q6H PRN (Reason: pain postop) 7 Days Qty: 28 0RF Continued omeprazole 20 mg capsule,delayed release(DR/EC) 20 mg PO BID rosuvastatin 10 mg tablet 10 mg PO DAILY Discharge Orders: Discharge Order (Routine); Ordered 03/08/24 Ordered By: Ion Whitlock Referrals: [facility] [Outside] Rochelle Mojica MD [Primary Care Provider] - 4-7 days (We have notified your physician's clinic of the need for a follow-up appointment to be scheduled. If you have not heard from them within the next 2 business days, please call them directly. ) Ion Whitlock DO [Physician] - 03/22/24 2:45 pm Discharge Diet: Regular Discharge Activity: Limit activity as instructed Patient Instructions: Methocarbamol (By mouth), Oxycodone, Rapid Release (By mouth), Apixaban (By mouth), Acute Wound Care (DC), Opioid Safety, Post Anesthesia Care Activity Restrictions/Additional Instructions: Orthopedic discharge instructions: Left hip incision site---Miko Dressing--Keep dressing on and dry. After 3 days you can remove some of the dressing and shower. disconnect battery pack when showering. Miko dressing will stay on until follow up appt in 2 weeks. The battery pack for the dressing will at 5-7 days. Battery pack can be removed and discarded once batteries . Right hip incision site--Silverlon dressing-- keep dressings clean dry and intact Okay to shower over dressings if they do become wet these should be removed and new dressings applied Keep incisions clean dry and intact, leave Silverlon bandage dressings on in place for 7 days after that may rinse incisions with warm soapy water pat dry and redress with a dry dressing Weight-bear as tolerated to operative lower extremity Anterior hip precautions-do not bend your hip more than 90 degrees, do not cross your legs. Follow Physical Therapy's instructions. When sleeping or lying in bed in supine position use abduction pillow to prevent legs from crossing midline Ice as needed for pain and swelling Take pain medication as prescribed Take antinausea medication as needed May supplement for pain with Tylenol [id number] as needed(1000 mg every 8 hours-do not exceed more than 3000mg in 24-hour period) Supplement with Citracal vitamin D for bone health and healing Pain medication can cause constipation. take [id number] stool softeners and or MiraLAX. Take blood thinner as prescribed (Eliquis) Follow-up in the orthopedic office in 2 weeks Contact the office for any questions or concerns Discharge Attestations Time Spent in Discharge Care*: less than 30 min Quality Metrics Clinical Quality Measures [ No reported AMI, CVA or VTE this stay] Coding Level of Care Code Acute Code for Chg Fwd Diagnoses Status post total hip replacement, left Z96.642 Time Spent (min) 25
[2024-03-08 13:48] VITALS: RESP 18
== END 2024-03-08 14:15 | disposition home health service (06) ==
LOC: MEDSURG 20:20
PROVIDERS: Physician Assistant; Admitting Provider Student in an Organized Health Care Education/Training Program; PCP Family Medicine; Visit Provider Student in an Organized Health Care Education/Training Program
PROC: 8E0Y0CZ Robotic Assisted Procedure of Lower Extremity, Open Approach (ICD-10-PCS; CPT 27130; principal; 2024-03-07 07:00)
DX: M16.12 Unilateral primary osteoarthritis, left hip (principal); E78.5 Hyperlipidemia, unspecified; K21.9 Gastro-esophageal reflux disease without esophagitis; K40.90 Unilateral inguinal hernia, without obstruction or gangrene, not specified as recurrent; Z79.899 Other long term (current) drug therapy
CPT/HCPCS: 27130; 36415; 51702; 73501; 73502; 76000; 80048; 85025; 86850; 86900; 97116; 97161; 97530; C1776; G0378; J0131; J0330; J0690; J1100; J1171; J1885; J2250; J2405; J2704; J2710; J3010; J3370; J3490; J7030

== ENCOUNTER → 2024-03-22 14:45 | Outpatient (BNVA) | payer OTHER, SELFPAY | PROVIDERS: PCP Family Medicine; Visit Provider Physician Assistant | DX: Z96.642 Presence of left artificial hip joint (principal) | CPT/HCPCS: 73502; 99024 ==

== ENCOUNTER 2024-04-15 08:35 | Outpatient (RCR) | payer OTHER, SELFPAY | END 2024-05-09 23:59 | disposition home or self-care (01) | LOC: SPT 08:35 | PROVIDERS: Visit Provider Physician Assistant | DX: Z98.890 Other specified postprocedural states (principal) | CPT/HCPCS: 97110; 97161 ==

== ENCOUNTER → 2024-05-03 13:45 | Outpatient (BNVA) | payer OTHER, SELFPAY | PROVIDERS: Visit Provider Physician Assistant | DX: Z96.642 Presence of left artificial hip joint (principal) | CPT/HCPCS: 73502; 99024 ==

== ENCOUNTER 2024-05-10 16:35 | Outpatient (RCR) | payer OTHER, SELFPAY | END 2024-05-25 11:28 | disposition home or self-care (01) | LOC: SPT 16:35 | PROVIDERS: Visit Provider Physician Assistant | DX: Z98.890 Other specified postprocedural states (principal) | CPT/HCPCS: 97110 ==

== ENCOUNTER → 2024-06-01 09:43 | Outpatient (BNVA) | payer OTHER, SELFPAY | PROVIDERS: PCP Family Medicine; Visit Provider Student in an Organized Health Care Education/Training Program | DX: Z96.642 Presence of left artificial hip joint (principal) | CPT/HCPCS: 73502; 99213 ==